=== PATIENT | female | born 1940 | race Caucasian/White ===

== ENCOUNTER 2019-07-03 06:49 | Observation (INO) | payer MEDICARE, BC ==
[~2019-07-03] VITALS: Ht 162.6 cm; Wt 102.2 kg
[2019-07-03] MEDS ORDERED: FOSAMAX 70MG TA70 MG PO (07:08)
[2019-07-03] MEDS ORDERED: TYLENOL 325MG325 MG PO (07:08)
[2019-07-03] MEDS ORDERED: VITAMIN D50000 UNIT PO (07:09)
[2019-07-03] MEDS ORDERED: CLOPIDOGREL PO (07:09)
[2019-07-03] MEDS ORDERED: LIPITOR 40MG TA40 MG PO (07:09)
[2019-07-03] MEDS ORDERED: TRESIBA FL100 UNIT/1 SQ (07:10)
[2019-07-03] MEDS ORDERED: DIABETA 2.5MG2.5 MG PO (07:10)
[2019-07-03] MEDS ORDERED: FOSINOPRIL40 MG PO (07:10)
[2019-07-03] MEDS ORDERED: LEVOTHYROXINE100 MC1 PO (07:10)
[2019-07-03] MEDS ORDERED: METFORMIN HYD1000 M1 PO (07:11)
[2019-07-03] MEDS ORDERED: B-121000 MCG PO (07:11)
[2019-07-03] MEDS ORDERED: CENTRUM SILVER1 EAC1 PO (07:11)
[2019-07-03 07:50] LABS: HEMATOCRIT 39.8 % (37.0-47.0); HEMOGLOBIN 12.9 g/dL (12.5-16.0); MEAN CELL VOLUME 92 fl (78-100); MEAN CORPUSCULAR HEMOGLOBIN 30 pg (27-31); MEAN CORPUSCULAR HGB CONC 32 g/dL (33-37); MEAN PLATELET VOLUME 12.3 fl (7.4-10.4); PLATELET COUNT 201 K/mm3 (130-400); RED BLOOD COUNT 4.33 M/mm3 (4.10-5.30); RED CELL DISTRIBUTION WIDTH 13.3 % (11.5-14.5); WHITE BLOOD COUNT 14.1 K/mm3 (4.8-10.8)
[2019-07-03 07:53] LABS: LYMPHOCYTE 8 % (20-51); MONOCYTE 10 % (3-10); NEUTROPHILS 82 % (42-75)
[2019-07-03 07:54] LABS: CALCIUM 9.4 mg/dL (8.3-10.5); TOTAL PROTEIN 7.8 g/dL (6.2-8.1)
[2019-07-03 09:04] LABS: URINE APPEARANCE HAZY; URINE BILIRUBIN NEGATIVE (NEGATIVE); URINE BLOOD NEGATIVE (NEGATIVE); URINE COLOR YELLOW; URINE GLUCOSE NEGATIVE (NEGATIVE); URINE KETONE 1+ (NEGATIVE); URINE LEUKOCYTE ESTERASE NEGATIVE (NEGATIVE); URINE MUCUS PRESENT (NOT PRESENT); URINE NITRATE NEGATIVE (NEGATIVE); URINE PROTEIN(semi-quant) TRACE mg/dL (NEGATIVE); URINE UROBILINOGEN NORMAL (NORMAL)
[2019-07-03 09:48] VITALS: BP 165/83
[2019-07-03 09:51] VITALS: BP 150/86
[2019-07-03 14:16] VITALS: BP 135/75
[2019-07-03 17:22] VITALS: BP 137/84
[2019-07-03 21:31] VITALS: BP 100/74
[2019-07-04 02:30] VITALS: BP 131/76
[2019-07-04 06:16] LABS: HEMATOCRIT 37.3 % (37.0-47.0); HEMOGLOBIN 12.1 g/dL (12.5-16.0); MEAN CELL VOLUME 93 fl (78-100); MEAN CORPUSCULAR HEMOGLOBIN 30 pg (27-31); MEAN CORPUSCULAR HGB CONC 32 g/dL (33-37); PLATELET COUNT 195 K/mm3 (130-400); RED BLOOD COUNT 4.02 M/mm3 (4.10-5.30); RED CELL DISTRIBUTION WIDTH 13.5 % (11.5-14.5); WHITE BLOOD COUNT 10.1 K/mm3 (4.8-10.8)
[2019-07-04 06:20] VITALS: BP 146/68
[2019-07-04 06:36] LABS: POTASSIUM 3.8 mmol/L (3.5-5.1)
[2019-07-04 06:37] LABS: CALCIUM 8.8 mg/dL (8.3-10.5)
[2019-07-04 06:50] LABS: LYMPHOCYTE 9 % (20-51); MONOCYTE 11 % (3-10); NEUTROPHILS 80 % (42-75); POLYCHROMASIA 1+
[2019-07-04 09:40] VITALS: BP 131/94
== END 2019-07-04 10:47 | disposition other institution (70) ==
LOC: ED 06:49 → MED/SURG 09:18 → ED 09:24 → MED/SURG 07-04 10:47
PROVIDERS: Family Medicine; ADMIT Nurse Practitioner Primary Care
DX: R53.1 Weakness (principal); I10 Essential (primary) hypertension; E03.9 Hypothyroidism, unspecified; E78.5 Hyperlipidemia, unspecified; M81.0 Age-related osteoporosis without current pathological fracture; Z79.02 Long term (current) use of antithrombotics/antiplatelets; Z79.4 Long term (current) use of insulin; Z88.2 Allergy status to sulfonamides; Z86.73 Personal history of transient ischemic attack (TIA), and cerebral infarction without residual deficits; Z88.5 Allergy status to narcotic agent; E86.0 Dehydration
CPT/HCPCS: G0378; J1815; J1885; J2405; J7030

== ENCOUNTER 2019-07-04 10:05 | Inpatient (IN) | payer MEDICARE, BC ==
[~2019-07-04 10:05] MED LIST: B-121000 MCG PO; CENTRUM SILVER1 EAC1 PO; CLOPIDOGREL PO; DIABETA 2.5MG2.5 MG PO; FOSAMAX 70MG TA70 MG PO; FOSINOPRIL40 MG PO; LEVOTHYROXINE100 MC1 PO; LIPITOR 40MG TA40 MG PO; METFORMIN HYD1000 M1 PO; TRESIBA FL100 UNIT/1 SQ; TYLENOL 325MG325 MG PO; VITAMIN D50000 UNIT PO
[2019-07-04 10:20] VITALS: BP 131/94; BP 144/92
--- NOTE | 2019-07-04 11:40 | NUR ---
DRY HEAVES AT THIS TIME. WILL GIVE ZOFRAN WHEN AVAILABLE.
--- NOTE | 2019-07-04 14:00 | NUR ---
Pt lives in [facility] [address] in [facility]. Apartments have handicap accessibility. She uses a FWW since a stroke in 2013 and has a w/c for use as well. Pt was admitted w/ weakness, recent non-injury fall and a recent bout of vomiting. Pt's daughter is an RN who lives in [place] and checks on her mother frequently. Pt's daughter requests that she be set up w/ a personal emergency response system, and also believes her mother would benefit from HH services upon discharge, particularly in that she needs a bath aide and some housekeeping services. Pt's daughter states that she believes that her mother had some sort of services like this when she lived in [place] after her stroke. Pt and daughter are informed of HH benefits for SN/PT/OT/BathAide if SN is needed and Senior Software Tester, as well as homebound status (pt does not drive and relies on her daughter for transportation). Pt and dtr are also informed and given contact information for [facility] who can do a CARE Assessment in the home and possibly assist pt through the [employer] in obtaining housekeeping services, as does not provide this service. They are given HH choice list per [facility] and Private Pay Home Assistance information for caregiver assist in the area. They are also given ELECTRICAL PLUMBING SUPERVISOR info on setting up a personal alarm system and also informed of HH agencies in the area who also provide this service. Both verbalize understanding and will review handouts and are encouraged to ask questions as they arise.
[2019-07-04 14:12] VITALS: BP 154/73
--- NOTE | 2019-07-04 16:36 | NUR ---
REQUIRES ASSISTANCE WITH BED MOBILITY. RISES FROM SITTING POSITION EASILY. DRAGS LT FOOT WITH AMBULATION. INCONTINENT OF BLADDER. VOIDS 300ML. BLOOD NOTED TO LT HIP AND WITH CLEANSING IS NOTED TO BE COMING FROM SCRATCH NOTED TO UPPER LT THIGH. ABD FOLD NEAR THIS AREA RED. SKIN CLEANSED AND DRIED. INTER DRY PLACED TO SITE. RT ABD FOLD AND GROIN FOLD APPEARS NORMAL. PATIENT UNABLE TO RECALL SCRATCHING SITE BUT DOES REPORT IT ITCHING. EDUCATION PROVIDED REGARDING INTERDRY.
[2019-07-04 17:13] VITALS: BP 135/68
--- NOTE | 2019-07-04 19:00 | NUR ---
Report provided by HERMINIA Cleary.
--- NOTE | 2019-07-04 19:35 | NUR ---
REPORT PROVIDED TO YON HOPE.
--- NOTE | 2019-07-04 19:45 | NUR ---
Patient supine in bed with HOB at 45. Patient presents with some palor. Bruising on L inner thigh, buttock, upper back and L upper arm (previous fall at home). Patient has a dry, non-productive cough. Upon auscultation, lungs are diminished at bases. L abdominal fold red. L arm weaker than R. Blood glucose at 150. L forearm peripheral line with NS running at 75mls/hr. No fever at this time, 98.7. No pain or headache at this time. Patient provided sandwich per request, stating dinner was not very appetizing so she did not eat it. Patient ate 75% of sandwich.
--- NOTE | 2019-07-04 20:30 | NUR ---
Patient provided evening meds. Patient educated on use of hospital meds per hospital policy when changing from observation to Acute. Education also provided on the substitution of medications levemir for tresiba and lisinopril for fosinopril. Patient asked questions about antibiotics and meds from earlier in the day. Educated patient on purpose of meds provided for pneumonia and symptoms. Patient agreeable and appreciated the information.
[2019-07-04 22:19] VITALS: BP 121/73
--- NOTE | 2019-07-05 01:20 | NUR ---
Patient awoke with headache. Temperature at 100.1. Provided tylenol, fresh water and repositioned.
[2019-07-05 02:35] VITALS: BP 141/71
--- NOTE | 2019-07-05 02:40 | NUR ---
Patient reports feeling nauseous. She has a headache still, fever 101.7. Provided zofran IV and cool washcloths to the back of the neck and forehead.
--- NOTE | 2019-07-05 04:13 | NUR ---
Patient asleep. RR 24. IV NS complete and DC'd.
--- NOTE | 2019-07-05 05:04 | NUR ---
Patient asleep. RR 20.
[2019-07-05 05:56] LABS: HEMATOCRIT 32.4 % (37.0-47.0); HEMOGLOBIN 10.5 g/dL (12.5-16.0); MEAN CELL VOLUME 94 fl (78-100); MEAN CORPUSCULAR HEMOGLOBIN 30 pg (27-31); MEAN CORPUSCULAR HGB CONC 32 g/dL (33-37); MEAN PLATELET VOLUME 11.2 fl (7.4-10.4); PLATELET COUNT 199 K/mm3 (130-400); RED BLOOD COUNT 3.46 M/mm3 (4.10-5.30); RED CELL DISTRIBUTION WIDTH 13.7 % (11.5-14.5); WHITE BLOOD COUNT 8.9 K/mm3 (4.8-10.8)
--- NOTE | 2019-07-05 06:00 | NUR ---
Patient alert and oriented x4. Patient states she no longer has a headache. Fever no longer present. Patient states no pain. Patient repositioned in bed. SCDs removed.
[2019-07-05 06:06] VITALS: BP 130/70
[2019-07-05 06:06] LABS: POTASSIUM 3.4 mmol/L (3.5-5.1)
[2019-07-05 06:07] LABS: CALCIUM 8.1 mg/dL (8.3-10.5)
[2019-07-05 06:17] LABS: LYMPHOCYTE 16 % (20-51); MONOCYTE 13 % (3-10); NEUTROPHILS 68 % (42-75)
--- NOTE | 2019-07-05 07:26 | NUR ---
Report given to HERMINIA Hernandez.
--- NOTE | 2019-07-05 07:27 | NUR ---
Report given to HERMINIA Hernandez.
[2019-07-05 11:04] VITALS: BP 131/75
[2019-07-05 14:51] VITALS: BP 101/75
[2019-07-05 18:33] VITALS: BP 122/79
--- NOTE | 2019-07-05 19:00 | NUR ---
Report given by HERMINIA Hernandez.
--- NOTE | 2019-07-05 19:45 | NUR ---
Patient presents with a more pink rather than palor skin color. Headache present at 2-3/10. Lung bases are diminished upon auscultation. L side is weak in lower extremity. Blood Glucose at 177. Patient's cough less frequent.
--- NOTE | 2019-07-05 20:45 | NUR ---
Patient states headache is better. She was provided tylenol around 1800. Patient diaphoretic. Meds provided. No other pain stated by patient. SCDs placed on legs bilaterally.
[2019-07-05 21:31] VITALS: BP 143/71
[2019-07-06 01:56] VITALS: BP 123/76
[2019-07-06 05:49] LABS: HEMATOCRIT 32.9 % (37.0-47.0); HEMOGLOBIN 10.5 g/dL (12.5-16.0); MEAN CELL VOLUME 93 fl (78-100); MEAN CORPUSCULAR HEMOGLOBIN 30 pg (27-31); MEAN CORPUSCULAR HGB CONC 32 g/dL (33-37); MEAN PLATELET VOLUME 10.9 fl (7.4-10.4); PLATELET COUNT 239 K/mm3 (130-400); RED BLOOD COUNT 3.54 M/mm3 (4.10-5.30); RED CELL DISTRIBUTION WIDTH 13.6 % (11.5-14.5)
[2019-07-06 05:53] LABS: BAND 1 % (0-10); LYMPHOCYTE 18 % (20-51); MONOCYTE 12 % (3-10); NEUTROPHILS 61 % (42-75); POLYCHROMASIA 1+; POTASSIUM 3.8 mmol/L (3.5-5.1)
[2019-07-06 05:54] VITALS: BP 162/72
[2019-07-06 05:55] LABS: CALCIUM 8.4 mg/dL (8.3-10.5)
--- NOTE | 2019-07-06 07:20 | NUR ---
BEDSIDE REPORT RECEIVED FROM HERMINIA PENA
--- NOTE | 2019-07-06 07:20 | NUR ---
BEDSIDE REPROT RECEIVED FROM HERMINIA PENA
--- NOTE | 2019-07-06 07:28 | NUR ---
Report given to HERMINIA Soto.
[2019-07-06 09:50] VITALS: BP 144/72
--- NOTE | 2019-07-06 10:00 | NUR ---
PATIENT'S SHIFT ASSESSMENT COMPLETE. PATIENT DENIES ANY PAIN OR DISCOMFORTS. ALERT AND ORIENTED X4. REPORTS FEELING BETTER TODAY. STATES "I DON'T THINK I HAD A FEVER ALL NIGHT LAST NIGHT BUT I WAS SWEATING LIKE CRAZY I THINK I'M DOING BETTER" PATIENT'S HEART RATE TACHY. HEART RATE 108 RADIAL AND REGULAR. PATIENT STATES "THAT'S CONCERNING BUT I THINK IT'S BEEN HIGH SINCE I GOT HERE" LUNGS DIMINISHED IN BILAT LOWER LOBES. PATIENT DENIES SHORTNESS OF BREATH OR DIFFICULTIES BREATHING. PATIENT HAS REDNESS TO ADBOMINAL FOLDS DOES HAVE SOME IRRITATED SKIN TO RIGHT GROIN FOLD. AREA MOIST AND EXCORIATED IN SOME AREAS. INTERDRY PALCED. PATIENT'S CALL LIGHT WITHIN REACH. BED ALARM ON.
--- NOTE | 2019-07-06 10:12 | NUR ---
Oval, white pill with markings that identify it as an atorvastatin tablet, Found on patients floor in her room by housekeeping at about 0945 this morning. Her nurse, Skylar, was informed.
--- NOTE | 2019-07-06 11:40 | NUR ---
Dave ROD HOUSEKEEPER HOME IN WITH PATIENT AT THIS TIME.
[2019-07-06 13:32] VITALS: BP 133/80
--- NOTE | 2019-07-06 14:00 | NUR ---
PATIENT AMBULATES IN [place] WITH BENCH WORKER HOLLOW HANDLE. AMBULATES WITH WALKER. WALKS TO NURSES STATION AND BACK TO ROOM APPROXIMATELY 150 FT. GAIT STEADY. SP02 95% DURING MOST OF WALK. HEART RATE GOES UP TO 140. HEART RATE REGULAR. Dave ROD APRN NOTIFIED.
[2019-07-06 17:48] VITALS: BP 157/69
--- NOTE | 2019-07-06 19:25 | NUR ---
REPORT GIVEN TO HERMINIA ROTH
--- NOTE | 2019-07-06 19:45 | NUR ---
Resting in bed, awake and a/o x 3. Sp02 95% on room air, pulse 105, respirations 20. C/o's of constant pain right shoulder and right hip. Rates 5 out 10. Offered ice pack, pt declined. C/o's of headache. Pt states the shoulder pain, hip and headache are chonic pain issues. Pupils cliff, size 3. Equal principal examiner in hands. Equal strong equal strength in upper and lower extremities. Answers all questions appropriately. Offered tylenol with evening medications, pt agreed.
--- NOTE | 2019-07-06 19:46 | NUR ---
Pupils are equal and reactive to light.
[2019-07-06 22:20] VITALS: BP 134/77
[2019-07-07 02:14] VITALS: BP 143/75
[2019-07-07 05:27] VITALS: BP 154/80
--- NOTE | 2019-07-07 06:19 | NUR ---
Q hourly checks done. Bed alarm set and call light with in reach. Pt has used call light when needing to get up. Continues to answer all questions appropriately. Pt pleasant and talkative.
--- NOTE | 2019-07-07 07:14 | NUR ---
Report given to Brittany Melo RN
[2019-07-07 09:56] VITALS: BP 157/85
[2019-07-07 14:08] VITALS: BP 166/82
[2019-07-07 17:20] VITALS: BP 157/81
--- NOTE | 2019-07-07 19:15 | NUR ---
Report received from Brittany Melo RN
[2019-07-07] MEDS ORDERED: CEFDINIR300 MG PO (19:17)
[2019-07-07] MEDS ORDERED: AZITHROMYCIN 250MGPK PO (19:18)
[2019-07-07] MEDS ORDERED: IPRATROPIUM BROM3 M1 IH (19:18)
[2019-07-07] MEDS ORDERED: ENOXAPARIN40 MG/0.1 SQ (19:19)
[2019-07-07] MEDS ORDERED: METOPROLOL SUCC25 M1 PO (19:20)
--- NOTE | 2019-07-07 19:20 | NUR ---
Dr Kirby into see pt.
--- NOTE | 2019-07-07 23:54 | NUR ---
1999 Pt informed her hospital status would change from acute to swing bed status. Pt stated that Dr Kirby had been in to see her and Brittany Melo RN had informed her. Pt stated understanding, denied concerns and agreed.
== END 2019-07-07 21:00 | disposition still patient (30) | DRG 194 ==
LOC: MED/SURG 10:05
PROVIDERS: Nurse Practitioner Family; ADMIT Physician Assistant
DX: J18.9 Pneumonia, unspecified organism (principal); I69.954 Hemiplegia and hemiparesis following unspecified cerebrovascular disease affecting left non-dominant side; I10 Essential (primary) hypertension; E03.9 Hypothyroidism, unspecified; E78.5 Hyperlipidemia, unspecified; E11.65 Type 2 diabetes mellitus with hyperglycemia; M81.0 Age-related osteoporosis without current pathological fracture; R00.0 Tachycardia, unspecified; R53.83 Other fatigue; Z79.1 Long term (current) use of non-steroidal anti-inflammatories (NSAID); Z79.02 Long term (current) use of antithrombotics/antiplatelets; Z79.4 Long term (current) use of insulin; Z88.2 Allergy status to sulfonamides; Z88.8 Allergy status to other drugs, medicaments and biological substances
CPT/HCPCS: A4216; J0456; J0696; J1650; J1815; J2405; J7030; J7050